=== PATIENT | male | born 1935 | race Hispanic/Latino ===

== ENCOUNTER 2019-01-07 21:40 | Emergency (ER) | payer MEDICAID, OTHER ==
[~2019-01-07 21:40] MED LIST: AEC81 PO; ALFU10TA18 PO; AMLO2.5T2 PO; ATOR10 PO; AZIT250T PO; DONE10TA36 PO; DUTA0.5C17 PO; LISI40TA4 PO; MEMA10TA20 PO; SERT100T12 PO
[2019-01-07] MEDS ORDERED: CEFAZOLIN SODIUM 1 GM VIAL ONE (21:59)
[2019-01-07] MEDS ORDERED: TETANUS/DIPHTHERIA TOXOID [ADULT] 0.5 ML VIAL IM ONE (21:59)
== END 2019-01-07 23:55 | disposition home or self-care (01) ==
LOC: EDH 21:40
DX: S81.811A Laceration without foreign body, right lower leg, initial encounter (principal); E78.00 Pure hypercholesterolemia, unspecified; I10 Essential (primary) hypertension; W22.8XXA Striking against or struck by other objects, initial encounter; Y93.89 Activity, other specified; Y92.89 Other specified places as the place of occurrence of the external cause; Y99.8 Other external cause status
CPT/HCPCS: 12032; 73610; 90471; 90714; 96365; 96366; 99285; J0690

== ENCOUNTER 2019-01-15 11:19 | Emergency (ER) | payer OTHER | END 2019-01-15 12:06 | disposition home or self-care (01) | LOC: EDH 11:19 | DX: S91.011D Laceration without foreign body, right ankle, subsequent encounter (principal); I10 Essential (primary) hypertension; E78.00 Pure hypercholesterolemia, unspecified; X58.XXXD Exposure to other specified factors, subsequent encounter ==